=== PATIENT | male | born 1955 | race Hispanic/Latino ===

== ENCOUNTER 2021-03-06 08:56 | Emergency (ER) | payer OTHER ==
[2021-03-06 09:43] VITALS: BP 119/77
[2021-03-06] MEDS ORDERED: predniSONE 20 MG TAB PO ONE (10:35)
[2021-03-06] MEDS ORDERED: IPRATROPIUM/ALBUTEROL SULFATE 3 ML AMPUL.NEB IH ONE (10:35)
--- NOTE | 2021-03-06 10:54 | Emergency Department Report ---
- General Chief Complaint: Upper Respiratory Infection Stated Complaint: COUGH, MUCUS PUI?: No Time Seen by Provider: 03/06/21 10:00 Source: patient Mode of arrival: Ambulatory Limitations: No Limitations - History of Present Illness Initial Comments: 65-year-old male who reports no significant past medical history presents to the ER today with complaints of cough. Patient states that he has been coughing intermittently for the past 9 to 10 months. He states that he did see his PCP in August for the cough, and it was recommended that he get a chest x-ray. He states that his PCP gave him an albuterol inhaler which he was using and was helping his symptoms but he ran out. He states that he did not get a chest x- ray because the cough had slowed down, but it started getting intense again and feels like it is getting worse. He states that cough has been productive, and he noticed for the first time streaks of blood mixed with yellow sputum this morning. He states that 3 days ago he started having shortness of breath mainly when he coughs and wheezing. He also reports that he woke up with sweats this morning. He denies any fever or chills. He denies any chest pain. He denies any runny nose or nasal congestion. He denies any tobacco use. He states that he drinks socially. He denies any illicit drug use. He is not any blood thinne rs. He denies any lower extremity swelling or calf pain. MD Complaint: cough -: month(s) - Related Data Previous Rx's Medication Instructions Recorded Last Taken Type traMADoL [Ultram] 50 mg PO Q6HR PRN #14 tablet 03/28/14 Unknown Rx Albuterol Mdi (or & Nicu Only) 2 puff IH QID PRN #8.5 gram 03/06/21 Unknown Rx [ProAir HFA Inhaler] predniSONE [Deltasone] 50 mg PO QDAY #5 tab 03/06/21 Unknown Rx Allergies Allergy/AdvReac Type Severity Reaction Status Date / Time aspirin Allergy Swelling Verified 03/27/14 20:29 ED Review of Systems ROS: Stated complaint: COUGH, MUCUS Other details as noted in HPI Comment: All other systems reviewed and negative Constitutional: denies: chills, fever Eyes: denies: eye pain, eye discharge, vision change ENT: denies: ear pain, throat pain Respiratory: cough, shortness of breath, wheezing Cardiovascular: denies: chest pain, palpitations Gastrointestinal: denies: abdominal pain, nausea, vomiting, diarrhea, constipation, hematemesis, hematochezia Genitourinary: as per HPI. denies: frequency, hematuria, discharge, testicular pain, testicular mass Musculoskeletal: denies: back pain, joint swelling, arthralgia Skin: denies: rash, lesions, change in color, change in hair/nails, pruritus Neurological: denies: headache, weakness, numbness, paresthesias, confusion, abnormal gait, vertigo Psychiatric: denies: anxiety, depression, auditory hallucinations, visual hallucinations, homicidal thoughts, suicidal thoughts Hematological/Lymphatic: denies: easy bleeding, easy bruising, swollen glands ED Past Medical Hx - Past Medical History Previous Medical History?: No - Social History Smoking Status: Never Smoker Substance Use Type: Alcohol - Medications Home Medications: Home Medications Medication Instructions Recorded Confirmed Last Taken Type traMADoL [Ultram] 50 mg PO Q6HR PRN #14 tablet 03/28/14 Unknown Rx Albuterol Mdi (or & Nicu Only) 2 puff IH QID PRN #8.5 gram 03/06/21 Unknown Rx [ProAir HFA Inhaler] predniSONE [Deltasone] 50 mg PO QDAY #5 tab 03/06/21 Unknown Rx ED Physical Exam - General Limitations: No Limitations General appearance: alert, in no apparent distress - Head Head exam: Present: atraumatic, normocephalic, normal inspection - Eye Eye exam: Present: normal appearance, PERRL, EOMI Pupils: Present: normal accommodation - ENT ENT exam: Present: normal exam - Neck Neck exam: Present: normal inspection, full ROM. Absent: meningismus - Respiratory Respiratory exam: Present: normal lung sounds bilaterally, wheezes (Diffuse inspiratory and expiratory wheezing noted). Absent: respiratory distress, rales, rhonchi - Cardiovascular Cardiovascular Exam: Present: regular rate, normal rhythm, normal heart sounds - Extremities Exam Extremities exam: Present: normal inspection, full ROM. Absent: pedal edema, calf tenderness - Neurological Exam Neurological exam: Present: alert, oriented X3, CN II-XII intact, normal gait - Psychiatric Psychiatric exam: Present: normal affect, normal mood - Skin Skin exam: Present: intact ED Course Vital Signs 03/06/21 03/06/21 09:12 09:41 Temperature 99.1 F 98.9 F Pulse Rate 78 82 Respiratory 19 20 Rate Blood Pressure 115/77 Blood Pressure 119/77 [Right] O2 Sat by Pulse 97 95 Oximetry ED Medical Decision Making - Lab Data Result diagrams: 03/06/21 11:00 03/06/21 11:00 - Radiology Data Radiology results: report reviewed Patient: FERNANDO VALVERDE MR#: [id number] : 1955 Acct:[id number] Age/Sex: 65 / M ADM Date: 03/06/21 Loc: ED Attending Dr: Ordering Physician: TENZIN HADDAD Date of Service: 03/06/21 Procedure(s): XR chest routine 2V Accession Number(s): [id number] cc: TENZIN HADDAD Fluoro Time In Minutes: CHEST 2 VIEWS INDICATION / CLINICAL INFORMATION: Hemoptysis/cough/sob. COMPARISON: None available. FINDINGS: SUPPORT DEVICES: None. HEART / MEDIASTINUM: No significant abnormality. LUNGS / PLEURA: No significant pulmonary or pleural abnormality. No pneumothorax. ADDITIONAL FINDINGS: No significant additional findings. IMPRESSION: 1. No acute findings. Signer Name: Luis Fallon MD Signed: 03/06/2021 10:54 AM Workstation Name: [id number] Transcribed By: Dictated By: Luis Fallon MD Electronically Authenticated By: Luis Fallon MD Signed Date/Time: 03/06/21 105 DD/ 1054 TD/TT: - Medical Decision Making cxr shows nothing acute. Labs unremarkable. Patient wheezing improved after DuoNeb treatment. Patient currently resting comfortably, is not in any acute pain or respiratory distress. He is not toxic or ill-appearing. He is neurologically intact. His vital signs including oxygen saturation is stable. Discussed imaging results, as well as lab results with patient. Suspect patient symptoms related to chronic bronchitis. I do not suspect PE, or any significant other cardiopulmonary pathology of sepsis at this time. Discussed suspected diagnosis with patient. He will be discharged home with a prescription for prednisone and albuterol, and recommend that he keep his appointment with his PCP for March 19. Copy of his x-ray results was given to patient to take to his PCPs office visit. Informed him that he may need referral from his PCP to a newspaper deliverer for further evaluation and testing to rule out asthma, COPD or any other lung disease. Patient expressed understanding of all instructions and agree with plan. Patient was stable at time of discharge. Critical care attestation.: If time is entered above; I have spent that time in minutes in the direct care of this critically ill patient, excluding procedure time. ED Disposition Clinical Impression: Chronic bronchitis, Hemoptysis Disposition: HOME / SELF CARE / HOMELESS Is pt being admited?: No Does the pt Need Aspirin: No Condition: Stable Instructions: Hemoptysis, Chronic Bronchitis, Adult, Chronic Bronchitis (ED) Additional Instructions: I recommend that you use albuterol inhaler every 4-6 hours as needed for wheezing, shortness of breath and cough. You can take the Tessalon Perles as prescribed to help with cough. Take the prednisone as prescribed. I recommend that you keep your appointment with your primary care doctor for March 19, I do recommend discussing with him referral to pulmonology for further evaluation of your cough. Return to the ER if your symptoms changes or worsens in any way. Prescriptions: predniSONE [Deltasone] 50 mg PO QDAY #5 tab Albuterol Mdi (or & Nicu Only) [ProAir HFA Inhaler] 2 puff IH QID PRN #8.5 gram PRN Reason: Shortness Of Breath Referrals: PRIMARY CARE, [Referring] - 3-5 Days Time of Disposition: 13: Print Language: CHINESE
--- NOTE | 2021-03-06 10:59 | XRay Report ---
CHEST 2 VIEWS INDICATION / CLINICAL INFORMATION: Hemoptysis/cough/sob. COMPARISON: None available. FINDINGS: SUPPORT DEVICES: None. HEART / MEDIASTINUM: No significant abnormality. LUNGS / PLEURA: No significant pulmonary or pleural abnormality. No pneumothorax. ADDITIONAL FINDINGS: No significant additional findings. IMPRESSION: 1. No acute findings. Signer Name: Luis Fallon MD Signed: 03/06/2021 10:54 AM Workstation Name: [id number]
[2021-03-06 11:52] LABS: Basophils % (Auto) 0.6 % (0.0-1.8); Eosinophils # (Auto) 0.2 K/mm3 (0.0-0.4); Eosinophils % (Auto) 1.8 % (0.0-4.3); Hematocrit 47.7 % (35.5-45.6); Hemoglobin 15.7 gm/dl (11.8-15.2); Lymphocytes % (Auto) 23.7 % (13.4-35.0); Mean Corpuscular HGB Conc 33 % (32-34); Mean Corpuscular Volume 87 fl (84-94); Monocytes # (Auto) 1.2 K/mm3 (0.0-0.8); Monocytes % (Auto) 13.6 % (0.0-7.3); Platelet Count 158 K/mm3 (140-440); Red Cell Distribution Width 15.1 % (13.2-15.2)
[2021-03-06 12:05] LABS: Alanine Aminotransferase 17 units/L (7-56); BUN/Creatinine Ratio 10; Blood Urea Nitrogen 10 mg/dL (9-20); Hemolysis Index 9
== END 2021-03-06 13:50 | disposition home or self-care (01) ==
LOC: ED 08:56
DX: J42 Unspecified chronic bronchitis (principal); R04.2 Hemoptysis; Z88.6 Allergy status to analgesic agent
CPT/HCPCS: 36415; 71046; 80053; 85025; 94640; 99284; J7512; 94644